=== PATIENT | female | born 1955 | race Hispanic/Latino ===

== ENCOUNTER 2018-11-21 14:43 | Outpatient (CLI) | payer MEDICARE ==
--- NOTE | 2018-11-21 16:16 | Ultrasound Report ---
LIMITED RIGHT BREAST ULTRASOUND HISTORY: A right upper mammographic asymmetry. COMPARISON: 10/30/2018 and 11/15/2018 mammograms. FINDINGS: Focused sonographic evaluation upon the upper location of the right breast demonstrates an oval area of relatively echogenic breast tissue 10:00 4 cm from the nipple which correlates with the mammographic finding. It measures approximately 3.3 x 1.0 cm. A benign cyst is identified in the cent er of it and it measures 0.9 x 0.4 x 0.7 cm. No solid mass or suspicious shadowing.. IMPRESSION: An area of relatively dense fibrocystic change at 10:00 4 cm from the nipple which correlates with th e mammographic density. No suspicious findings. Recommend routine mammographic screening. BIRADS 2: Benign Signer Name: Andreas Julian MD Signed: 11/21/2018 4:11 PM Workstation Name: [id number]
== END 2018-11-21 14:44 | disposition home or self-care (01) ==
LOC: SPVWC 14:43
PROVIDERS: ATTEND Surgery
DX: N60.11 Diffuse cystic mastopathy of right breast (principal)